=== PATIENT | female | born 1955 | race African-American/Black ===

== ENCOUNTER → 2017-02-16 | Outpatient (CLI) | payer BC ==
[~2017-02-16] MED LIST: ASPIRIN81 M1; COUMADIN2.5 MG PO; EFFER-K 10 MEQ10 MEQ PO; HYDROCHLOROTHIA25 MG; KEFLEX500 MG PO; PERCOCET 5-3251 TAB PO; POTASSIUM CHLO10 ME1 PO; TYLENOL #3 PO; VITAMIN D 22000 UNIT PO; ZOFRAN ODT4 MG PO
--- NOTE | ~2017-02-16 | MY11 ---
[facility] A Service of [facility] RADIOLOGY TEXT RESULTS PATIENT: CHELI MILLER LOCATION: [facility] : 53 UNIT #: [id number] AGE: [address]: Gume Byrd MD SEX: F ORDER DR: [id number] [facility] [address] [place], [place] [address] [id number] O MR#: [id number] Acc #: [id number] NAME: CHELI MILLER : 1955 SEX: F STUDY DATE/TIME: 02/16/2017 13:52 UNIT: [facility] ROOM: STUDY DESCRIPTION: MY Mammogram Screening Dig Sulaiman Attending Physician: Gume Byrd M.D. Referring Physician: Gume Byrd M.D. Ordering Physician: Gume Byrd M.D. Primary Care Physician: Gume Byrd M.D. MEDICAL IMAGING REPORT This report is preliminary unless electronic signature is present EXAM Digital screening mammogram, 02/16/2017. HISTORY 61-year-old woman; no risk elevation. Annual screening. COMPARISON STUDIES Mammograms date to 05/12/2011, with most recent 01/23/2016. FINDINGS Digital imaging of each breast was completed utilizing a two-view examination of each breast in craniocaudal and mediolateral-oblique projections. Review and interpretation of digital mammograms include a second review in conjunction with FDA-approved CAD device. There is a normal parenchymal presentation bilaterally consistent with the patient's age. There are no breast masses imaged and no parenchymal asymmetry is visualized. There are no suspicious microcalcifications and I see no focal architectural disturbance. NOTE Breast parenchyma is fatty replaced. IMPRESSION Negative screening digital mammogram. One-year followup recommended. Patients over the age of 40 are entered into a reminder system with target due date for the next mammogram. A result letter will also be sent to the patient. BIRADS: 1 Negative [facility] A Service of [facility] RADIOLOGY TEXT RESULTS PATIENT: CHELI MILLER LOCATION: [facility] : 53 UNIT #: [id number] AGE: [address]: Gume Byrd MD SEX: F ORDER DR: Dictated by... Harley Nam M.D. THIS IS AN ELECTRONICALLY VERIFIED REPORT Harley Nam M.D. at 02/17/2017 8:04 AM LUIS ALBERTO/mp TD: 02/16/2017 17:58 JOB #: [id number] MEDICAL IMAGING REPORT Page 1 of 1 COPY
== END | disposition home or self-care (01) ==
LOC: CWCC 13:20
DX: Z12.31 Encounter for screening mammogram for malignant neoplasm of breast (principal)
CPT/HCPCS: G0202

== ENCOUNTER → 2017-02-16 | Outpatient (CLI) | payer BC | END | disposition home or self-care (01) | LOC: CLAB 14:15 | DX: Z00.00 Encounter for general adult medical examination without abnormal findings (principal); K90.0 Celiac disease; K86.81 Exocrine pancreatic insufficiency; I10 Essential (primary) hypertension; M54.16 Radiculopathy, lumbar region; Z87.19 Personal history of other diseases of the digestive system | CPT/HCPCS: 36415; 84132 ==